=== PATIENT | male | born 1960 | race Two or more races ===

== ENCOUNTER 2017-04-19 11:10 | Day surgery (SDC) | payer OTHER ==
[~2017-04-19] VITALS: Ht 160 cm; Wt 68.9 kg
[2017-04-19] MEDS ORDERED: BP MEDS (11:58)
[2017-04-19 12:03] VITALS: Ht 160 cm; Wt 68.9 kg
[2017-04-19 12:15] VITALS: BP 124/80; PULSE 55; RESP 20
[2017-04-19] MEDS ORDERED: MIDAZOLAM 1 MG/ML 2 ML INJ ONE ×2 (13:35)
[2017-04-19] MEDS ORDERED: FENTAnyl 50 MCG/ML VIAL ONE (13:36)
--- NOTE | 2017-04-19 14:27 | OPPN ---
Date/Time of Note Date/Time of Note DATE: 04/19/17 TIME: 14:24 Operative Report Preoperative Diagnosis LOWER ABDOMINAL PAIN Postoperative Diagnosis Diverticulosis entire colon Polyp at anorectal junction 8 mm size removed Operation/Procedure Performed Colonoscopy polypectomy Surgeon see signature line technology assistant None Anesthesia: moderate sedation (3 mg Versed fentanyl 75 mcg/total time for moderate sedation 20 minutes) Estimated blood loss: none Transfusion Required none Specimen Anorectal junction millimeter polyp in the rectal area removed with the snare technique coagulation. Grafts/Implants none Complications none CADY BENJAMIN MD Apr 19, 2017 14:27
--- NOTE | 2017-04-19 14:27 | OPPN ---
Date/Time of Note Date/Time of Note DATE: 04/19/17 TIME: 14:24 Operative Report Preoperative Diagnosis LOWER ABDOMINAL PAIN Postoperative Diagnosis Diverticulosis entire colon Polyp at anorectal junction 8 mm size removed Operation/Procedure Performed Colonoscopy polypectomy Surgeon see signature line assistant professor of philosophy None Anesthesia: moderate sedation (3 mg Versed fentanyl 75 mcg/total time for moderate sedation 20 minutes) Estimated blood loss: none Transfusion Required none Specimen Anorectal junction millimeter polyp in the rectal area removed with the snare technique coagulation. Grafts/Implants none Complications none CADY BENJAMIN MD Apr 19, 2017 14:27
--- NOTE | 2017-04-19 14:27 | OPPN ---
Date/Time of Note Date/Time of Note DATE: 04/19/17 TIME: 14:24 Operative Report Preoperative Diagnosis LOWER ABDOMINAL PAIN Postoperative Diagnosis Diverticulosis entire colon Polyp at anorectal junction 8 mm size removed Operation/Procedure Performed Colonoscopy polypectomy Surgeon see signature line assistant food service manager None Anesthesia: moderate sedation (3 mg Versed fentanyl 75 mcg/total time for moderate sedation 20 minutes) Estimated blood loss: none Transfusion Required none Specimen Anorectal junction millimeter polyp in the rectal area removed with the snare technique coagulation. Grafts/Implants none Complications none CADY BENJAMIN MD Apr 19, 2017 14:27
--- NOTE | 2017-04-20 06:08 | GILP ---
DATE OF PROCEDURE: PREOPERATIVE DIAGNOSES: History of lower abdominal pain, history of colitis. PROCEDURE DONE: Colonoscopy, polypectomy. POSTOPERATIVE DIAGNOSES: Diverticulosis throughout the colon, right and left and mid colon, an anor ectal junctional polyp about 8 mm in size semi-sessile, was removed by snare technique. DESCRIPTION OF PROCEDURE: The patient was put in left lateral decubitus after obtaining informed co nsent, was sedated, monitored on oximetry, EKG, blood pressure, totally I gave 3 mg IV Versed and 75 mcg of fentanyl and advanced the Olympus video colonoscope all the way to cecum. Appendiceal openi ng and ileocecal valve were identified. Cecum, ascending colon, transverse colon, descending colon, sigmoid colon demonstrated multiple diverticula, but no polyps in those areas. In the rectum by re troflexion and antegrade exam, just above the anorectal junction, 8 mm polyp was noted. This was re moved by snare, hot coagulation technique and polypectomy accomplished and the polyp was recovered a nd sent to histopathology. Postop, patient had no bleeding and the scope was withdrawn. Patient morejon d no complication. PLAN: Will be to wait for biopsy report, followup in 1 to 2 weeks. High-fiber diet. Repeat colono scopy in 3 years. Dictated By: CADY CARLISLE Conf#: [id number] DID#: [id number] CC: Keyur Mendoza;*EndCC*
== END 2017-04-19 16:02 | disposition home or self-care (01) ==
LOC: GIL 11:10
PROVIDERS: ATTEND Internal Medicine
DX: K62.1 Rectal polyp (principal); I10 Essential (primary) hypertension
CPT/HCPCS: 45380; 88305; J2250; J3010; Z7610